=== PATIENT | male | born 1950 | race Caucasian/White ===

== ENCOUNTER 2022-10-05 09:01 | Outpatient (CLI) | payer MEDICARE, OTHER | END 2022-10-05 09:02 | disposition home or self-care (01) | LOC: CSHMRI 09:01 | PROVIDERS: ATTEND Orthopaedic Surgery | DX: M17.12 Unilateral primary osteoarthritis, left knee (principal); S83.242A Other tear of medial meniscus, current injury, left knee, initial encounter; M25.462 Effusion, left knee; M23.42 Loose body in knee, left knee; M71.22 Synovial cyst of popliteal space [Baker], left knee ==